=== PATIENT | female | born 1985 | race Caucasian/White ===

== ENCOUNTER 2021-04-29 21:19 | Emergency (ER) | payer BC ==
[~2021-04-29] VITALS: Ht 154.9 cm; Wt 92.2 kg
[2021-04-29] MEDS ORDERED: ACETAMINOPHEN 500 MG TABLET PO ONE (22:30)
[2021-04-29] MEDS ORDERED: IV NORMAL SALINE 1000ML BAG 1,000 ML IV SCH (22:30)
[2021-04-29] MEDS ORDERED: ONDANSETRON PF 4 MG/2 ML VIAL. IVP ONE (22:30)
--- NOTE | 2021-04-29 22:33 | PHYS DOC ---
Past Medical History Past Medical History: No Pertinent History Past Surgical History: No Surgical History Smoking Status: Never Smoker Alcohol Use: None General Adult EDM: Chief Complaint: FEVER HPI: HPI: 35 year old female presents with fever for the past 3 days along with lower quadrant abdominal pain and nausea with vomiting. She states her symptoms began after she ate [place] food. She states her pain is in her lower quadrants on both sides, does not radiate, is not related to any particular activity. she states that she feels fatigued and still remains unwell after several days. She reports a recent covid infection that she is recovered from and is currently unvaccinated. The patient denies chest pain, diarrhea, shortness of breath, urinary symptoms, cough, recent trauma, or any other complaints. Review of Systems: Review of Systems: ROS is otherwise negative except for what was mentioned in HPI Heart Score: C/O Chest Pain: No Physical Exam: PE: Constitutional: No acute distress, non-toxic appearance. HENT: Atraumatic, bilateral external ears normal, nose normal. Eyes: PERRLA, EOMI, conjunctiva normal, no discharge. Neck: Normal range of motion, supple, no stridor. Cardiovascular: Heart rate regular rhythm. 2+ radial pulses Lungs & Thorax: No respiratory distress, symmetrical expansion. Abdomen: Soft, lower quadrant ttp Skin: Warm, dry. Extremities: No tenderness, no cyanosis, ROM intact, no edema. Neurologic: Alert and oriented X 3, normal motor function, normal sensory function, no focal deficits noted. Non ataxic gait. GCS 15. Psychologic: Affect normal, judgment normal, mood normal. Current Patient Data: Labs: Laboratory Tests Test 04/29/21 22:45 04/29/21 22:51 04/29/21 22:55 04/29/21 23:03 Urine Collection Type Unknown Urine Color Pamela Urine Clarity Cloudy Urine pH 6.5 (<5.0-8.0) Urine Specific [place] 1.025 (1.000-1.030) Urine Protein 100 mg/dL (NEG-TRACE) Urine Glucose (UA) Negative mg/dL (NEG) Urine Ketones (Stick) Trace mg/dL (NEG) Urine Blood Moderate (NEG) Urine Nitrite Positive (NEG) Urine Bilirubin Small (NEG) Urine Urobilinogen Dipstick 2.0 mg/dL (0.2 mg/dL) Urine Leukocyte Esterase Moderate (NEG) Urine RBC 11-20 /HPF (0-2) Urine WBC Tntc /HPF (0-4) Urine Squamous Epithelial Cells Many /LPF Urine Bacteria Many /HPF (0-FEW) Urine Mucus Marked /LPF Bedside Urine HCG, Qualitative Hcg negative (Negative) SARS-CoV-2 Antigen (Rapid) Negative (NEGATIVE) White Blood Count 10.6 x10^3/uL (4.0-11.0) Red Blood Count 3.77 x10^6/uL (3.50-5.40) Hemoglobin 11.7 g/dL (12.0-15.5) Hematocrit 34.0 % (36.0-47.0) Mean Corpuscular Volume 90 fL (79-100) Mean Corpuscular Hemoglobin 31 pg (25-35) Mean Corpuscular Hemoglobin Concent 35 g/dL (31-37) Red Cell Distribution Width 14.4 % (11.5-14.5) Platelet Count 275 x10^3/uL (140-400) Neutrophils (%) (Auto) 81 % (31-73) Lymphocytes (%) (Auto) 10 % (24-48) Monocytes (%) (Auto) 9 % (0-9) Eosinophils (%) (Auto) 0 % (0-3) Basophils (%) (Auto) 0 % (0-3) Neutrophils # (Auto) 8.5 x10^3/uL (1.8-7.7) Lymphocytes # (Auto) 1.1 x10^3/uL (1.0-4.8) Monocytes # (Auto) 1.0 x10^3/uL (0.0-1.1) Eosinophils # (Auto) 0.0 x10^3/uL (0.0-0.7) Basophils # (Auto) 0.0 x10^3/uL (0.0-0.2) Sodium Level 134 mmol/L (136-145) Potassium Level 2.9 mmol/L (3.5-5.1) Chloride Level 98 mmol/L (98-107) Carbon Dioxide Level 25 mmol/L (21-32) Anion Gap 11 (6-14) Blood Urea Nitrogen 10 mg/dL (7-20) Creatinine 1.1 mg/dL (0.6-1.0) Estimated GFR (Cockcroft-Gault) 56.2 BUN/Creatinine Ratio 9 (6-20) Glucose Level 107 mg/dL (70-99) Calcium Level 8.4 mg/dL (8.5-10.1) Total Bilirubin 1.5 mg/dL (0.2-1.0) Aspartate Amino Transf (AST/SGOT) 20 U/L (15-37) Alanine Aminotransferase (ALT/SGPT) 31 U/L (14-59) Alkaline Phosphatase 88 U/L (46-116) Total Protein 7.5 g/dL (6.4-8.2) Albumin 3.1 g/dL (3.4-5.0) Albumin/Globulin Ratio 0.7 (1.0-1.7) Lipase 65 U/L (73-393) Vital Signs: Vital Signs Date Time Temp Pulse Resp B/P (MAP) Pulse Ox O2 Delivery O2 Flow Rate FiO2 04/30/21 00:12 98.9 98.9 04/29/21 22:31 102.9 102 16 153/86 (108) 98 Room Air 102.9 Radiology/Procedures: Radiology/Procedures: EXAMINATION: CT ABDOMEN+PELVIS W CLINICAL HISTORY: Abdominal pain, fever. History of appendectomy TECHNIQUE: CT of the abdomen and pelvis was performed using standard technique, scanning from just above the dome of the diaphragm to the symphysis pubis following administration of intravenous contrast. CT Dose Reduction Employed: One or more of the following individualized dose reduction techniques were utilized for this examination: 1. Automated exposure control 2. Adjustment of the mA and/or kV according to patient size 3. Use of iterative reconstruction technique. COMPARISON: 03/10/2020 FINDINGS: Minimal left basilar subsegmental atelectasis. Liver, gallbladder, pancreas, spleen, and adrenal glands unremarkable. 7 mm calculus at the right ureteropelvic junction with mild hydronephrosis and renal edema and perinephric stranding. Additional nonobstructive bilateral renal calculi. Minimally filled urinary bladder suboptimally evaluated. Uterus and ovaries within normal limits for patient's age. No bowel dilation or definite wall thickening. Appendectomy. No abdominal aortic or iliac artery aneurysm. No evidence of acute osseous abnormality. IMPRESSION: 7 mm calculus at the right ureteropelvic junction with mild hydronephrosis. Additional bilateral nonobstructive nephrolithiasis. Electronically signed by: Reji George DO (04/30/2021 12:13 AM) Course & Med Decision Making: Course & Med Decision Making patients K 2.7, evidence for uti on ua, will give rocephin and potassium replacement. patients vomiting controlled in the ed. CT shows 7 mm stone, coupled with infection will transfer to a facility with urology on staff. Patient will be transferred to [facility] under Dr. Masters, patient transferred via ems in stable condition Departure Departure Impression: Primary Impression: Hypokalemia Additional Impressions: UTI (urinary tract infection) Vomiting Kidney stone on left side Disposition: 02 [facility] (Transferred to [facility]) Admitting Physician: GUERLINE Hodge) Condition: STABLE GERONIMO MOLINA DO Apr 29, 2021 22:33
[2021-04-29 22:57] LABS: BILIRUBIN,URINE SMALL (NEG); CLARITY,URINE CLOUDY; COLOR,URINE AMBER; NITRITE,URINE POSITIVE (NEG); PH,URINE 6.5 (<5.0-8.0); PROTEIN,URINE 100 mg/dL (NEG-TRACE)
[2021-04-29 23:02] LABS: WBC,URINE TNTC /HPF (0-4)
[2021-04-29 23:03] LABS: BACTERIA,URINE MANY /HPF (0-FEW)
[2021-04-29 23:15] LABS: BASO % 0 % (0-3); EOS % 0 % (0-3); HEMOGLOBIN 11.7 g/dL (12.0-15.5); LYMPH # 1.1 x10^3/uL (1.0-4.8); LYMPH % 10 % (24-48); MEAN CORPUSCULAR HEMOGLOBIN 31 pg (25-35); MEAN CORPUSCULAR HGB CONC 35 g/dL (31-37); MEAN CORPUSCULAR VOLUME 90 fL (79-100); MONO % 9 % (0-9); NEUT # 8.5 x10^3/uL (1.8-7.7); NEUT % 81 % (31-73); PLATELET COUNT 275 x10^3/uL (140-400); RED BLOOD COUNT 3.77 x10^6/uL (3.50-5.40); RED CELL DISTRIBUTION WIDTH 14.4 % (11.5-14.5); WHITE BLOOD COUNT 10.6 x10^3/uL (4.0-11.0)
[2021-04-29] MEDS ORDERED: cefTRIAXone IV Push 1 GM VIAL. IVP ONE (23:15)
[2021-04-29] MEDS ORDERED: IOHEXOL 300 MG/ML 100ML VIAL. IV ONE (23:30)
[2021-04-29] MEDS ORDERED: CONTRAST GIVEN. MC PRN (23:30)
[2021-04-29 23:35] LABS: ALBUMIN 3.1 g/dL (3.4-5.0); ALBUMIN/GLOBULIN RATIO 0.7 (1.0-1.7); CALCIUM 8.4 mg/dL (8.5-10.1); CREATININE 1.1 mg/dL (0.6-1.0); GFR 56.2; TOTAL BILIRUBIN 1.5 mg/dL (0.2-1.0); TOTAL PROTEIN 7.5 g/dL (6.4-8.2)
[2021-04-29 23:41] LABS: POTASSIUM 2.9 mmol/L (3.5-5.1)
[2021-04-29] MEDS ORDERED: POTASSIUM BICARB 20 MEQ EFFERVESCENT TABLET. PO ONE (23:45)
[2021-04-29] MEDS ORDERED: POTASSIUM CHLORIDE 20MEQ 100 ML IV ONE (23:45)
--- NOTE | 2021-04-30 00:15 | RAD ---
EXAMINATION: CT ABDOMEN+PELVIS W CLINICAL HISTORY: Abdominal pain, fever. History of appendectomy TECHNIQUE: CT of the abdomen and pelvis was performed using standard technique, scanning from just ab ove the dome of the diaphragm to the symphysis pubis following administration of intravenous contrast . CT Dose Reduction Employed: One or more of the following individualized dose reduction techniques wer e utilized for this examination: 1. Automated exposure control 2. Adjustment of the mA and/or kV ac cording to patient size 3. Use of iterative reconstruction technique. COMPARISON: 03/10/2020 FINDINGS: Minimal left basilar subsegmental atelectasis. Liver, gallbladder, pancreas, spleen, and adrenal glands unremarkable. 7 mm calculus at the right ureteropelvic junction with mild hydronephrosis and renal edema and perine phric stranding. Additional nonobstructive bilateral renal calculi. Minimally filled urinary bladder suboptimally evaluated. Uterus and ovaries within normal limits for patient's age. No bowel dilation or definite wall thickening. Appendectomy. No abdominal aortic or iliac artery aneurysm. No evidence of acute osseous abnormality. IMPRESSION: 7 mm calculus at the right ureteropelvic junction with mild hydronephrosis. Additional bilateral nonobstructive nephrolithiasis. Electronically signed by: Reji George DO (04/30/2021 12:13 AM) [facility]
[2021-04-30] MEDS: POTASSIUM CHLORIDE 10MEQ 100 ML IV SCH ×2 (00:20→01:15)
[2021-04-30] MEDS ORDERED: ACETAMINOPHEN 500 MG TABLET PO ONE (00:45)
[2021-04-30 01:56] VITALS: BP 137/71
== END 2021-04-30 02:07 | disposition short-term general hospital (02) ==
LOC: ER 21:19
DX: N39.0 Urinary tract infection, site not specified (principal); E87.6 Hypokalemia; N13.2 Hydronephrosis with renal and ureteral calculous obstruction; R11.2 Nausea with vomiting, unspecified; Z20.822 Contact with and (suspected) exposure to COVID-19
CPT/HCPCS: 36415; 74177; 80053; 81001; 81025; 83690; 85025; 87077; 87086; 87186; 87426; 96365; 96366; 96375; 99285; J0696; J2405; J3480; J7030; Q9967; U0003; U0005